=== PATIENT | male | born 1990 | race Caucasian/White ===

== ENCOUNTER 2024-06-11 09:27 | Emergency (ER) | payer BC, SELFPAY ==
[2024-06-11 09:33] VITALS: BP 166/82
[2024-06-11 09:47] VITALS: BMI 29.6
--- NOTE | 2024-06-11 10:02 | ED.GENMED ---
History of Present Illness
General
Chief Complaint: Skin Problem
Time Seen by Provider: 06/11/24 09:43
History of Present Illness
History of Present Illness:
33-year-old male presents to the emergency department for evaluation of redness swelling and pain to the right upper gluteal region for the past 3 days. He frequently injects himself with testosterone, most recent injection to this area was
approximately 4 days ago. He has been performing ice compresses and massage with minimal improvement. No fevers or chills.
Review of Systems
Review of Systems
Allergies reviewed?: Yes
All Other Systems: ROS reviewed and negative except as documented in HPI and ROS
Phy Exam
Physical Exam
Physical Exam:
GEN: Well appearing, NAD, WDWN
HEENT: Oral mucosa moist, no scleral icterus
Cardiac: Regular rate
Lung: No respiratory distress, no tachypnea
MSK: Diffusely swollen right gluteal muscle belly with overlying skin erythema and induration, no crepitus, no open wounds, no fluctuance
Skin: Good color, no pallor or jaundice, no rashes
Neuro: AO x3, moves all extremities freely
Psych: Calm, cooperative
Course
Vital Signs
Initial and Last Documented VS:
Initial Vital Signs
Temp Pulse Resp BP Pulse Ox
99.1 F 98 16 166/82 100
06/11/24 09:33 06/11/24 09:33 06/11/24 09:33 06/11/24 09:33 06/11/24 09:33
Last Documented Vital Signs
Temp Pulse Resp BP Pulse Ox
99.1 F 90 18 160/80 100
06/11/24 09:33 06/11/24 10:24 06/11/24 10:24 06/11/24 10:24 06/11/24 10:24
MDM/Problems Addressed
MDM/Problems Addressed:
Limited bedside ultrasound performed myself shows suprafascial fluid striations consistent with cellulitis, no focal fluid collections or subfascial cobblestoning. Will treat the patient as a cellulitis with antibiotics and recommend avoidance of
injections to the site for at least the next 2 to 3 weeks
*Critical Care Note
Total Time (30-74mins, 75-104mins- exclusive of procedures): Not Applicable
ED Attending Note
-
Portions of this chart may have been created with voice recognition software.� Occasional wrong word or��sound alike� substitutions may have occurred due to the inherent limitations of voice recognition software.
Discharge Plan
Departure
Patient Disposition: Home (Routine Discharge)
Date of Disposition: 06/11/24
Time of Disposition: 10:04
Patient with high blood pressure during this ER visit?: No
Discharge Problem:
Cellulitis, gluteal
Instructions: Cellulitis (Skin Infection), Adult (DC)
Prescriptions:
New
cephalexin 500 mg capsule
500 mg PO Q8H 7 Days Qty: 21 0RF
Interventions
Interventions:
*Risk Screen - Suicide Last Done: 06/11/24 09:33
*General Assessment Last Done: 06/11/24 09:33
*Neglect/Abuse Screening Last Done: 06/11/24 09:33
*ED COVID-19 Vaccine History Last Done: 06/11/24 09:33
*Nursing Disposition Last Done: 06/11/24 10:24
ED-Skin Assessment Last Done: 06/11/24 09:47
Discharge Date and Time
Discharge Date/Time: 06/11/24 10:26
Print Language: [id number]
[2024-06-11 10:24] VITALS: BP 160/80
== END 2024-06-11 10:26 | disposition home or self-care (01) ==
LOC: EMR 09:27
PROVIDERS: EMERGENCY PHYSICIAN Emergency Medicine; FAMILY PHYSICIAN Nurse Practitioner Adult Health
DX: L03.317 Cellulitis of buttock (principal)
CPT/HCPCS: 99283

== ENCOUNTER 2025-01-31 13:27 | Emergency (ER) | payer BC, SELFPAY ==
[2025-01-31 13:29] VITALS: BP 169/103
[2025-01-31 13:58] VITALS: BP 155/63
[2025-01-31 14:00] VITALS: BP 140/71
--- NOTE | 2025-01-31 14:29 | ED.GENMED ---
History of Present Illness
General
Chief Complaint: Chest Pain
Time Seen by Provider: 01/31/25 14:15
History of Present Illness
History of Present Illness:
Patient is a 34-year-old man otherwise healthy presents to the emergency department chest pain. Patient states for the past few days he has felt well shock sensation around his left side of his chest over the pec muscle. Patient does admit
multiple times a week. He does note that movement with his shoulder worsens the pain. No shortness of breath. No pleuritic pain. No exertional pain. No history of cardiac disease. No leg swelling hemoptysis recent immobilization long car ride.
He did take significant medical supplement including creatine, collagen, pre workout but stopped last week. alcohol use multiiple times a week. no drugs. symptoms could be correlated with alcohol use
Phy Exam
Physical Exam
Physical Exam:
GENERAL: in no acute distress
HEENT: normocephalic, extraocular movements intact, moist oral mucosa
NECK: normal inspection
RESPIRATORY: no respiratory distress, clear to auscultation bilaterally
CARDIOVASCULAR: regular rate and rhythm
ABDOMEN/: soft, non-distended, non-tender to palpation, no rebound or guarding
EXTREMITIES: non-tender, no edema/swelling
NEUROLOGIC: awake and alert, moves all extremities
SKIN: warm
Scores
Heart Score for Chest Pain Patients
STEMI patient?: Not applicable
Course
Orders/Labs/Results
Orders:
Orders
01/31/25 13:29
Electrocardiogram (*1) Urgent
Reason for Study: Chest Pain
EKG- Treatment ONCE
01/31/25 14:29
CR Chest - 2 Views Urgent
Comment:
Reason For Exam: left chest pain
01/31/25 14:33
Basic Metabolic Panel Urgent
Complete Blood Count/With Diff Urgent
Magnesium Urgent
Abnormal Lab Results
01/31/25
14:33
RDW 11.1 L %
(11.5-14.5)
01/31/25 14:33
01/31/25 14:33
Vital Signs
Initial and Last Documented VS:
Initial Vital Signs
Temp Pulse Resp BP Pulse Ox
97.8 F 77 16 169/103 100
01/31/25 13:29 01/31/25 13:29 01/31/25 13:29 01/31/25 13:29 01/31/25 13:29
Last Documented Vital Signs
Temp Pulse Resp BP Pulse Ox
97.8 F 79 19 140/71 97
01/31/25 13:29 01/31/25 14:30 01/31/25 14:30 01/31/25 14:00 01/31/25 14:34
MDM/Problems Addressed
Differential Diagnosis Includes:
Patient is a 34-year-old man presenting to the emergency department with assault like sensations to the left chest especially with certain movement of his shoulder. On arrival vitals are notable for hypertension and exam is reassuring, Could be
arrythmia, metabolic derangement, MSK pain, alcohol or supplement side effect. History and exam not consistent with ACS or PE or PTX or dissection pathology. EKG per my interpretation with no significant ST changes. Will check blood work and chest
xray.
*Pulse Oximetry
SaO2: 97
Oxygen Mode of Delivery: Room air
Patient hypoxic: no
*Critical Care Note
Total Time (30-74mins, 75-104mins- exclusive of procedures): Not Applicable
Update Note
Update Note:
Blood work reassuring. Chest x-ray per my interpretation with no obvious pneumothorax or infiltrate. Will discharge patient at this time. He has been asymptomatic during his emergency department visit
ED Attending Note
-
Portions of this chart may have been created with voice recognition software.� Occasional wrong word or��sound alike� substitutions may have occurred due to the inherent limitations of voice recognition software.
Discharge Plan
Departure
Patient Disposition: Home (Routine Discharge)
Date of Disposition: 01/31/25
Time of Disposition: 15:25
Patient with high blood pressure during this ER visit?: Yes
Discharge Problem:
Chest pain
Instructions: Chest Pain PCP Follow Up
Prescriptions:
No Action
cephalexin 500 mg capsule
500 mg PO Q8H 7 Days Qty: 21 0RF
Referrals:
UNKNOWN - PT DOES,NOT KNOW [Family Provider]
Activity Restrictions/Additional Instructions:
You were evaluated in the Emergency Department today for chest pain. Your evaluation has shown no signs of medical conditions requiring emergent intervention at this time, however we recommend that you follow up with your primary care physician or
your financial services consultant as soon as possible for further testing as an outpatient.
Please schedule an appointment for follow up with your primary care physician as soon as possible.
Return to the Emergency Department if you experience worsening or uncontrolled chest pain, shortness of breath, light headedness, feeling faint, nausea, vomiting, or any other concerning symptoms.
Thank you for choosing us for your care.
Interventions
Interventions:
*Risk Screen - Suicide Last Done: 01/31/25 13:30
*General Assessment Last Done: 01/31/25 14:21
*Neglect/Abuse Screening Last Done: 01/31/25 13:30
*ED- Fall Risk Assessment Last Done: 01/31/25 14:21
*ED COVID-19 Vaccine History Last Done: 01/31/25 14:21
*ED Influenza Vaccine History Last Done: 01/31/25 14:21
ED- Cardiac Assessment Last Done: 01/31/25 14:21
Discharge Date and Time
Print Language: JAPANESE
[2025-01-31 14:47] LABS: Hematocrit 49.9 % (39.0-52.0); Hemoglobin 17.2 g/dL (13.0-18.0); Mean Corp Hgb Conc. 34.5 g/dL (33.0-37.0); Mean Corpuscular Volume 83.9 fL (80.0-94.0); Nucleated Red Blood Cells % 0 % (-); Platelet Count 204 10^3/uL (130-400); Red Cell Dist. Width 11.1 % (11.5-14.5)
[2025-01-31 15:12] LABS: Blood Urea Nitrogen 19 mg/dl (9-20); Calcium 9.6 mg/dl (8.4-10.2); Carbon Dioxide 28 mmol/L (22-30); Chloride 103 mmol/L (98-107); Glucose 88 mg/dl (70-99); Magnesium 2.2 mg/dl (1.6-2.3); Potassium 4.2 mmol/L (3.5-5.1); Sodium 135 mmol/L (135-145); eGFR > 60.00
== END 2025-01-31 15:32 | disposition home or self-care (01) ==
LOC: EMR 13:27
PROVIDERS: EMERGENCY PHYSICIAN Student in an Organized Health Care Education/Training Program
DX: R07.89 Other chest pain (principal)
CPT/HCPCS: 99285; 71046; 80048; 83735; 85025; 93005